=== PATIENT | female | born 1990 | race Two or more races ===

== ENCOUNTER 2017-03-19 16:49 | Emergency (ER) | payer OTHER ==
[~2017-03-19] VITALS: Ht 162.6 cm; Wt 63.5 kg
[~2017-03-19 16:49] MED LIST: DEPO150I IM; DIFL150T PO; FLUC150T PO; METR-1 PO; MMW SWISH-SWAL
[2017-03-19 16:53] VITALS: BP 152/87; PULSE 87; RESP 18; TEMP 98.3; O2SAT 100
[2017-03-19] MEDS ORDERED: PREN1TAB63 PO (17:47)
[2017-03-19 17:49] VITALS: BP 107/66; PULSE 83; RESP 18; O2SAT 100
--- NOTE | 2017-03-19 18:45 | PD ---
HPI Chief Complaint: Forensic Analyst Problem/Complaint Time Seen by Provider: 17:57 Travel History International Travel<30 days: No Contact w/Intl Traveler<30days: No Traveled to known affect area: No History of Present Illness HPI Patient's 26. She is a 2 para 1 last menstruation was 5-1/2 weeks ago. She had a positive home test. She reports vaginal spotting since this afternoon requiring about one pad per every hour and a half. She reports a dark colored vaginal bleeding. She has no back pain or abdominal pain. She denies nausea vomiting and fever. Onset sudden. No abnormal vaginal discharge. She reports a history of trichomoniasis several months prior with nonsense including a pelvic study performed a month ago at which time vaginal candidiasis was diagnosed. Pt currently is compliant with vitamins. PFSH Past Medical History Medical History: Denies Significant Hx Cardiovascular Problems: No Diminished Hearing: No Neurologic: No Respiratory: No ?: LMP: 02/07/17 : 1 Para: 0 Past Surgical History Other Surgery: No Social History Alcohol Use: No Tobacco Use: No Substance Use: No Allergies-Medications (Allergen,Severity, Reaction): Coded Allergies: No Known Allergies (Verified , 03/19/17) Reported Meds & Prescriptions Reported Meds & Active Scripts Active Reported Vitamins 0.8 mg ( Multivit-Min W/Fe-FA) 1 Tab Tab 1 Tab PO Review of Systems Except as stated in HPI: all other systems reviewed are Neg Physical Exam Narrative GENERAL: 26 yo F, WNWD, NAD SKIN: Warm and dry. HEAD: Atraumatic. Normocephalic. EYES: Pupils equal and round. No scleral icterus. No injection or drainage. ENT: No nasal bleeding or discharge. Mucous membranes pink and moist. NECK: Trachea midline. No JVD. CARDIOVASCULAR: Regular rate and rhythm. RESPIRATORY: No accessory muscle use. Clear to auscultation. Breath sounds equal bilaterally. GASTROINTESTINAL: Abdomen soft, non-tender, nondistended. Hepatic and splenic margins not palpable. MUSCULOSKELETAL: Extremities without clubbing, cyanosis, or edema. No obvious deformities. NEUROLOGICAL: Awake and alert. No obvious cranial nerve deficits. Motor grossly within normal limits. Five out of 5 muscle strength in the arms and legs. Normal speech. PSYCHIATRIC: Appropriate mood and affect; insight and judgment normal. Data Data Last Documented VS Vital Signs Date Time Temp Pulse Resp B/P Pulse Ox O2 Delivery O2 Flow Rate FiO2 03/19/17 17:51 83 18 03/19/17 17:49 107/66 100 Room Air 03/19/17 16:53 98.3 VS reviewed Orders Beta Hcg (Quant/Titer) (03/19/17 18:10) Wet Prep Profile (03/19/17 18:10) Ed Urine Pregnancytest Poc (03/19/17 18:10) Complete Rh (03/19/17 18:10) Us Pelvis (Ques Pr/Ect)W Trans (03/19/17 ) Urinalysis - C+S If Indicated (03/19/17 21:13) Labs Laboratory Tests Test 03/19/17 03/19/17 03/19/17 18:10 18:25 21:13 Blood Type AB POSITIVE Rho(D) Type POSITIVE Human Chorionic Gonadotropin, 7534 MIU/ML Quant Urine Color YELLOW Urine Turbidity CLEAR Urine pH 6.5 Urine Specific [place] 1.026 Urine Protein TRACE mg/dL Urine Glucose (UA) NEG mg/dL Urine Ketones NEG mg/dL Urine Occult Blood MOD Urine Nitrite NEG Urine Bilirubin NEG Urine Urobilinogen LESS THAN 2.0 MG/DL Urine Leukocyte Esterase TRACE Urine RBC 1 /hpf Urine WBC 1 /hpf Urine Squamous Epithelial 2 /hpf Cells Urine Bacteria RARE /hpf Urine Mucus FEW /lpf Microscopic Urinalysis Comment CULT NOT INDICATED MDM Medical Decision Making Medical Screen Exam Complete: Yes Emergency Medical Condition: Yes Medical Record Reviewed: Yes Differential Diagnosis IUP, UTI, ectopic , ov torsion, appendicitis, TOA, cervicitis, BV, Trichomoniasis, ov cyst, hernia, mittelschmerz, pain from menstruation Narrative Course Urinalysis: Asymptomatic bacteriuria Beta hCG 7534 Last 24 hours Impressions Pelvis Ultrasound 03/19/17 0000 Signed Impressions: Service Date/Time: Sunday, March 19, 2017 19:35 - CONCLUSION: 1. Positive intrauterine with gestational sac measurements too early for dating. Questionable yolk sac. No pole. 2. Small subchorionic hemorrhage lower uterine segment. 3. Corpus luteum cyst left ovary. Naeem Keita MD The patient is resting comfortably and feels better, is alert and in no distress. The patients results and examination findings were discussed. The repeat examination is unremarkable and benign. The history, exam, diagnostic testing, and current condition do not suggest any significant pathology to warrant further testing, continued ED treatment, admission, or surgical evaluation at this point. The vital signs have been stable. The patient does not have uncontrollable pain, intractable vomiting, or other significant symptoms. The patient's condition is stable and appropriate for discharge. The patient will pursue further outpatient evaluation with a primary care physician or other designated or consulting physician as indicated in the discharge instructions. The patient expressed understanding and was agreeable with this plan. Diagnosis Primary Impression: Threatened Additional Impression: Asymptomatic bacteriuria Referrals: Endy Holland MD R2 2 days Additional Instructions: You have a choice when it comes to health care, and we are glad that you chose [facility]. Hopefully, we have met your expectations on today's visit. You are welcome to return to [facility] at any time, as we are committed to meeting the health care needs of our community. FOLLOW UP WITH DR HOLLAND IN 48 HOURS FOR A REPEAT BETA TEST. Med/Other Pt SpecificInfo: Prescription(s) given Disposition: DISCHARGE HOME Condition: Stable Sid Gomez MD Mar 19, 2017 18:45
[2017-03-19 19:40] LABS: BETA HCG QUANT 7534 MIU/ML (0-5)
--- NOTE | 2017-03-19 21:13 | RADRPT ---
EXAM DATE/TIME: 03/19/2017 19:35 [facility] COMPARISON: No previous studies available for comparison. INDICATIONS : Pelvic bleeding. LAB(S): Beta-hC,534 MEDICAL HISTORY : . SURGICAL HISTORY : section. Fixator to pelvis. ENCOUNTER: Initial ACUITY: 1 day PAIN SCORE: 0/10 LOCATION: Bilateral pelvis MEASUREMENTS: UTERUS: 8.7 x 5.2 x 4.5 cm ENDOMETRIAL STRIPE: 11 mm RIGHT OVARY: 2.0 x 2.0 x 2.5 cm LEFT OVARY: 2.1 x 2.0 x 3.8 cm FREE FLUID: Yes left adnexa FINDINGS: Intrauterine with gestational sac noted with measurements to early for dating. Questionable yolk sac. No pole identified. Subchorionic hemorrhage lower uterine segment measuring about 2. 3 x 1 x 0.8 cm. Complex left ovarian cyst measuring 2.1 cm probably a corpus luteum cyst. Trace free fluid. Right ova ry unremarkable. CONCLUSION: 1. Positive intrauterine with gestational sac measurements too early for dating. Questionab le yolk sac. No pole. 2. Small subchorionic hemorrhage lower uterine segment. 3. Corpus luteum cyst left ovary. Naeem Keita MD on March 19, 2017 at 21:07 Board Certified Radiologist. This report was verified electronically.
[2017-03-19 21:41] LABS: BACTERIA, URINE RARE /hpf; BLOOD, URINE MOD (NEG); COMMENT (UR) CULT NOT INDICATED; CULTURE IF INDICATED CULT NOT INDICATED; GLUCOSE,URINE NEG (NEG); KETONE, URINE NEG (NEG); MUCUS URINE FEW /lpf (OCC); NITRITE,URINE NEG (NEG); PH, URINE 6.5 (5.0-8.5); SQUAMOUS EPITHELIAL CELL URINE 2 /hpf (0-5); URINE COLOR YELLOW (YELLW/STRAW)
== END 2017-03-19 22:52 | disposition home or self-care (01) ==
LOC: NEPD 16:49
DX: O20.0 Threatened abortion (principal); R82.71 Bacteriuria; Z3A.00 Weeks of gestation of pregnancy not specified
CPT/HCPCS: 76700; 76817; 81001; 84702; 84703

== ENCOUNTER → 2017-06-28 | Outpatient (CLI) | payer OTHER, MEDICAID ==
[~2017-06-28] MED LIST changes: -DEPO150I IM; -DIFL150T PO; -FLUC150T PO; +INFL1INJ56 IM; -METR-1 PO; -MMW SWISH-SWAL; +PREN1TAB63 PO
== END ==
LOC: HPND 08:52
PROVIDERS: ATTEND Family Medicine
DX: O26.842 Uterine size-date discrepancy, second trimester (principal); O36.8920 Maternal care for other specified fetal problems, second trimester, not applicable or unspecified; Z3A.00 Weeks of gestation of pregnancy not specified
CPT/HCPCS: 76805

== ENCOUNTER → 2017-10-31 | Emergency (ER) | payer MEDICAID ==
[~2017-10-31] MED LIST changes: +IBUP1TAB7 PO; -INFL1INJ56 IM; +OXYC1TAB63 PO; +TUCKSPAD TOPICAL
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
== END | disposition home or self-care (01) ==
LOC: HOBED 10:50
DX: O36.8130 Decreased fetal movements, third trimester, not applicable or unspecified (principal); O26.893 Other specified pregnancy related conditions, third trimester; R42 Dizziness and giddiness; Z3A.38 38 weeks gestation of pregnancy
CPT/HCPCS: 59025; 82948

== ENCOUNTER 2017-11-11 04:46 | Inpatient (IN) | payer MEDICAID ==
[2017-11-11] VITALS (115 sets, daily range): BP systolic 94–157; BP diastolic 61–97; PULSE 52–215; RESP 17–20; TEMP 97.9–99.9; O2SAT 98
[~2017-11-11] VITALS: Ht 162.6 cm; Wt 83.0 kg
[~2017-11-11 04:46] MED LIST changes: -IBUP1TAB7 PO; -OXYC1TAB63 PO; -TUCKSPAD TOPICAL
[2017-11-11] MEDS ORDERED: LACTATED RINGER'S 1000 ML INJ 1,000 ML IV PRN (05:06)
[2017-11-11] MEDS ORDERED: OXYTOCIN 30 UNITS-500ML PREMIX 500 ML IV ONE (05:15)
[2017-11-11] MEDS ORDERED: LIDOCAINE HCL 1% 50 ML VIAL INFIL PRN (05:15)
[2017-11-11] MEDS ORDERED: CITRIC ACID-SODIUM CITRATE LIQ 30 ML UDC PO SCH (05:15)
[2017-11-11] MEDS ORDERED: PENICILLIN G POTASSIUM INJ 5,000,000 UNITS in SODIUM CHLORIDE 0.9% INJ 100 ML IV ONE (05:15)
[2017-11-11] MEDS ORDERED: LIDOCAINE HCL 1% 50 ML VIAL I-DERMAL PRN (05:15)
[2017-11-11] MEDS ORDERED: MINERAL OIL 10 ML VIAL TOPICAL PRN (05:15)
[2017-11-11] MEDS ORDERED: SODIUM CHLORID 0.9% 500 ML INJ 500 ML IV PRN (05:15)
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
[2017-11-11 05:17] LABS: AUTOMATED NEUTROPHIL # 7.1 TH/MM3 (1.8-7.7); BASOPHIL # 0.1 TH/MM3 (0-0.2); BASOPHIL % 0.5 % (0.0-2.0); EOSINOPHIL # 0.1 TH/MM3 (0-0.4); EOSINOPHIL % 0.7 % (0.0-4.0); HEMATOCRIT 33.9 % (35.0-46.0); HEMOGLOBIN 11.7 GM/DL (11.6-15.3); LYMPH % 28.1 % (9.0-44.0); LYMPHOCYTE # 3.3 TH/MM3 (1.0-4.8); MEAN CELL VOLUME 90.8 FL (80.0-100.0); MEAN CORPUSCULAR HEMOGLOBIN 31.4 PG (27.0-34.0); MEAN CORPUSCULAR HGB CONC 34.5 % (32.0-36.0); MEAN PLATELET VOLUME 8.1 FL (7.0-11.0); MONOCYTE # 1.2 TH/MM3 (0-0.9); NEUT % 60.7 % (16.0-70.0); PLATELET COUNT 319 TH/MM3 (150-450); RED BLOOD COUNT 3.74 MIL/MM3 (4.00-5.30); RED CELL DISTRIBUTION WIDTH 13.2 % (11.6-17.2); WHITE BLOOD COUNT 11.8 TH/MM3 (4.0-11.0)
[2017-11-11] MEDS: LACTATED RINGER'S 1000 ML INJ 1,000 ML IV SCH ×3 (05:20→21:06)
[2017-11-11 05:22] LABS: BACTERIA, URINE RARE /hpf; BILIRUBIN, URINE NEG (NEG); BLOOD, URINE NEG (NEG); GLUCOSE,URINE NEG (NEG); HYALINE CAST, URINE 1 /lpf (RARE); KETONE, URINE NEG (NEG); MUCUS URINE FEW /lpf (OCC); NITRITE,URINE NEG (NEG); PH, URINE 6.5 (5.0-8.5); SQUAMOUS EPITHELIAL CELL URINE 1 /hpf (0-5); URINE COLOR YELLOW (YELLW/STRAW); URINE LEUKOCYTE ESTERASE TRACE (NEG)
[2017-11-11] MEDS ORDERED: fentaNYL 2MCG-BUPIV 0.125% INJ 100 ML ONE ×2 (05:26→10:40)
[2017-11-11] MEDS ORDERED: SODIUM CHLOR 0.9% 1000 ML INJ 1,000 ML IV PRN (05:26)
--- NOTE | 2017-11-11 05:42 | PD.LABORPN ---
Subjective Subjective Patient seen and examined this morning. Currently laboring at this time. Anesthesiology is present to administer epidural. Patient is reporting frequent contractions and pelvic pain/pressure. Denies any gush of fluid or vaginal bleeding. (Endy Campbell MD, R3) Objective Vital Signs Vital Signs Date Time Temp Pulse Resp B/P (MAP) Pulse Ox O2 Delivery O2 Flow Rate FiO2 11/11/17 05:10 95 11/11/17 05:09 99.0 20 11/11/17 05:05 110 11/11/17 05:01 108 150/86 (107) 11/11/17 05:00 109 Objective Pelvic Exam: Cervix: Soft Dilatation: 8 Effacement: 100 Station: -2 Presentation: Vertex Membranes: Intact Uterine Contractions: Every 2 minutes FHT's: Category: 1 Baseline: 150 Reactive: Up to 160 Variability: Moderate Decels: None Weeks Gestation: 39 Pt started active labor?: Yes Medical induction of labor?: No Artificial rupture of membrane: No (Endy Campbell MD, R3) Assessment/Plan Problem List: (1) ICD Codes: Z34.90 - Encounter for supervision of normal , unspecified , unspecified trimester Qualifiers: Qualified Codes: Z3A.39 - 39 weeks gestation of Assessment and Plan 26-year-old at 39/3 weeks presenting in active labor #1 IUP Category 1 tracing, reassuring #2 labor, active phase Contractions and cervical change Bulging bag, await AROM until PCN given x2, if possible Admit to L&D, routine labor care Plan for epidural anesthesia, currently being performed #3 GBS positive Ppx with PCN wdw Dr. Cook (Endy Campbell MD, R3) Assessment and Plan Patient seen and evaluated with resident under direct supervision, agree with assessment and plan. (Tommy Cook MD) Endy Campbell MD, R3 Nov 11, 2017 05:42 Tommy Cook MD Nov 11, 2017 07:29
[2017-11-11] MEDS ORDERED: LIDOCAINE HCL 1% 20 ML VIAL ONE (09:36)
[2017-11-11] MEDS: PENICILLIN G POTASSIUM INJ 2,500,000 UNITS in SODIUM CHLORIDE 0.9% INJ 100 ML IV SCH ×3 (09:38→21:00)
--- NOTE | 2017-11-11 10:36 | PD.LABORPN ---
Subjective Subjective Pt doing well, lying in bed. Pain controlled. No new symptoms. Objective Vital Signs Vital Signs Date Time Temp Pulse Resp B/P (MAP) Pulse Ox O2 Delivery O2 Flow Rate FiO2 11/11/17 09:40 113 11/11/17 09:35 106 11/11/17 09:30 97 94/61 (72) 11/11/17 09:30 20 11/11/17 09:30 111 11/11/17 09:25 111 11/11/17 09:20 104 11/11/17 09:15 104 134/85 (101) 11/11/17 09:15 97 11/11/17 09:15 19 11/11/17 09:10 111 11/11/17 09:05 113 11/11/17 09:00 98 11/11/17 09:00 99 135/85 (102) 11/11/17 08:45 18 11/11/17 08:40 101 11/11/17 08:35 100 11/11/17 08:30 90 126/84 (98) 11/11/17 08:30 99 11/11/17 08:13 98.0 11/11/17 08:12 17 11/11/17 08:10 98 11/11/17 08:05 93 11/11/17 08:00 94 11/11/17 08:00 97 133/95 (108) 11/11/17 07:50 90 11/11/17 07:45 98 11/11/17 07:45 98 131/83 (99) 11/11/17 07:30 17 11/11/17 07:25 99 11/11/17 07:20 90 11/11/17 07:15 100 11/11/17 07:15 91 122/79 (93) 11/11/17 07:15 18 11/11/17 07:10 89 11/11/17 07:05 92 11/11/17 07:00 97 126/81 (96) 11/11/17 07:00 98 11/11/17 06:50 103 11/11/17 06:45 135/81 (99) 11/11/17 06:45 99 11/11/17 06:45 100 11/11/17 06:40 96 11/11/17 06:35 103 11/11/17 06:30 101 131/83 (99) 11/11/17 06:30 100 11/11/17 06:30 97.9 11/11/17 06:30 20 11/11/17 06:30 103 11/11/17 06:25 104 11/11/17 06:25 100 11/11/17 06:20 121 11/11/17 06:20 118 11/11/17 06:19 113 133/86 (102) 11/11/17 06:15 108 117/79 (92) 11/11/17 06:15 104 11/11/17 06:15 103 11/11/17 06:11 126/80 (95) 11/11/17 06:11 107 11/11/17 06:10 109 11/11/17 06:10 110 11/11/17 06:05 147 11/11/17 06:05 143/67 (92) 11/11/17 06:05 109 11/11/17 06:05 103 11/11/17 06:00 95 11/11/17 06:00 131/84 (100) 11/11/17 06:00 97 11/11/17 06:00 95 11/11/17 05:55 97 11/11/17 05:55 103 132/83 (99) 11/11/17 05:55 98 11/11/17 05:54 20 11/11/17 05:50 100 11/11/17 05:50 101 11/11/17 05:50 102 130/82 (98) 11/11/17 05:48 95 120/70 (87) 11/11/17 05:46 108 104/68 (80) 11/11/17 05:45 105 11/11/17 05:45 103 11/11/17 05:42 101 119/78 (92) 11/11/17 05:40 100 11/11/17 05:40 100 11/11/17 05:39 103 125/86 (99) 11/11/17 05:36 106 142/80 (100) 11/11/17 05:35 98.4 11/11/17 05:35 99 11/11/17 05:35 100 11/11/17 05:34 135/87 (103) 11/11/17 05:34 94 11/11/17 05:32 100 11/11/17 05:32 120/88 (99) 11/11/17 05:30 104 11/11/17 05:26 20 11/11/17 05:25 114 11/11/17 05:20 95 11/11/17 05:10 95 11/11/17 05:09 99.0 20 11/11/17 05:05 110 11/11/17 05:01 108 150/86 (107) 11/11/17 05:00 109 Objective Pelvic Exam: Cervix: [-] Dilatation: 9-10 Effacement: 100 Station: -2 Presentation: vertex Membranes: AROM at 1030 Uterine Contractions: q2-3 minutes FHT's: Category: 1 Baseline: 140 Reactive: yes Variability: moderate Decels: none Weeks Gestation: 39 Pt started active labor?: Yes Medical induction of labor?: No Artificial rupture of membrane: Yes Artificial ROM date: Nov 11, 2017 Artifical ROM time: 10:34 Assessment/Plan Problem List: (1) ICD Codes: Z34.90 - Encounter for supervision of normal , unspecified , unspecified trimester Qualifiers: Qualified Codes: Z3A.39 - 39 weeks gestation of Assessment and Plan 26-year-old at 39/3 weeks in active labor #1 IUP Category 1 tracing, reassuring #2 labor, active phase Contractions and cervical change AROM performed Admit to L&D, routine labor care Epidural #3 GBS positive Ppx with Cristofer Briseno MD Nov 11, 2017 10:36
[2017-11-11] MEDS ORDERED: DO NOT ADMINISTER ANTICOAGULANTS PRN (11:15)
[2017-11-11] MEDS ORDERED: NO SYSTEM NARCOTICS PRN (11:15)
[2017-11-11] MEDS ORDERED: fentaNYL 2MCG-BUPIV 0.125% 100 ML EPIDURAL SCH (11:15)
[2017-11-11] MEDS ORDERED: ePHEDrine/NS 25 MG/5 ML SYRINGE IV PUSH PRN (11:15)
[2017-11-11] MEDS ORDERED: BUPIVACAINE HCL PF 0.25% 10 ML VIAL ONE (12:30)
[2017-11-11] MEDS ORDERED: LIDOCAINE 2%/EPINEPHrine PF 1:200,000 20ML SDV ONE (12:30)
--- NOTE | 2017-11-11 15:09 | PD.LABORPN ---
Subjective Subjective Patient seen and examined. She has been having decreased urine output. Labs have been ordered. She reports that she feels that she needs to push and a trial of pushing has begun. She is only feeling pelvic pressure denies any severe pain. Objective Vital Signs Vital Signs Date Time Temp Pulse Resp B/P (MAP) Pulse Ox O2 Delivery O2 Flow Rate FiO2 11/11/17 12:15 134 11/11/17 12:15 20 11/11/17 12:15 146 144/89 (107) 11/11/17 12:10 115 11/11/17 12:05 118 11/11/17 12:00 19 11/11/17 12:00 108 11/11/17 12:00 116 138/97 (111) 11/11/17 11:55 116 11/11/17 11:50 119 11/11/17 11:45 110 11/11/17 11:45 107 130/90 (103) 11/11/17 11:24 18 11/11/17 11:20 108 11/11/17 11:15 114 11/11/17 11:15 107 128/88 (101) 11/11/17 11:10 99 11/11/17 11:05 113 11/11/17 11:00 94 11/11/17 11:00 104 141/91 (108) 11/11/17 11:00 98.2 11/11/17 10:58 18 11/11/17 10:55 102 11/11/17 10:50 101 11/11/17 10:46 101 157/73 (101) 11/11/17 10:45 106 11/11/17 10:30 18 11/11/17 10:25 104 11/11/17 10:20 105 11/11/17 10:15 98 113/74 (87) 11/11/17 10:15 98 11/11/17 09:40 113 11/11/17 09:35 106 11/11/17 09:30 97 94/61 (72) 11/11/17 09:30 20 11/11/17 09:30 111 11/11/17 09:25 111 11/11/17 09:20 104 11/11/17 09:15 104 134/85 (101) 11/11/17 09:15 97 11/11/17 09:15 19 11/11/17 09:10 111 11/11/17 09:05 113 11/11/17 09:00 98 11/11/17 09:00 99 135/85 (102) 11/11/17 08:45 18 11/11/17 08:40 101 11/11/17 08:35 100 11/11/17 08:30 90 126/84 (98) 11/11/17 08:30 99 11/11/17 08:13 98.0 11/11/17 08:12 17 11/11/17 08:10 98 11/11/17 08:05 93 11/11/17 08:00 94 11/11/17 08:00 97 133/95 (108) 11/11/17 07:50 90 11/11/17 07:45 98 11/11/17 07:45 98 131/83 (99) 11/11/17 07:30 17 11/11/17 07:25 99 11/11/17 07:20 90 11/11/17 07:15 100 11/11/17 07:15 91 122/79 (93) 11/11/17 07:15 18 11/11/17 07:10 89 11/11/17 07:05 92 Objective Pelvic Exam: Cervix: soft Dilatation:10 Effacement: 100 Station:-1 Presentation: vertex Membranes: AROM Uterine Contractions: every 2 min FHT's: Category: 2 Baseline: 165 Reactive: up to 180 Variability: moderate Decels: none Weeks Gestation: 39 Pt started active labor?: Yes Medical induction of labor?: No Artificial rupture of membrane: Yes Artificial ROM date: Nov 11, 2017 Artifical ROM time: 10:34 Assessment/Plan Problem List: (1) ICD Codes: Z34.90 - Encounter for supervision of normal , unspecified , unspecified trimester Qualifiers: Qualified Codes: Z3A.39 - 39 weeks gestation of Assessment and Plan 26-year-old at 39/3 weeks in active labor #1 IUP Category 2 tracing, encouraging pushing to deliver the baby #2 labor, active phase Contractions and cervical change AROM performed Admit to L&D, routine labor care Epidural #3 GBS positive Ppx with PCN wdw: Endy Lopez MD, R3 Nov 11, 2017 15:09
[2017-11-11 15:10] LABS: HEMATOCRIT 33.6 % (35.0-46.0); HEMOGLOBIN 11.5 GM/DL (11.6-15.3); MEAN CELL VOLUME 91.1 FL (80.0-100.0); MEAN CORPUSCULAR HEMOGLOBIN 31.3 PG (27.0-34.0); MEAN CORPUSCULAR HGB CONC 34.4 % (32.0-36.0); MEAN PLATELET VOLUME 8.4 FL (7.0-11.0); PLATELET COUNT 313 TH/MM3 (150-450); RED BLOOD COUNT 3.69 MIL/MM3 (4.00-5.30); RED CELL DISTRIBUTION WIDTH 13.6 % (11.6-17.2); WHITE BLOOD COUNT 15.7 TH/MM3 (4.0-11.0)
[2017-11-11 15:42] LABS: ALT (GPT) 16 U/L (10-53); AST (GOT) 26 U/L (15-37); BICARBONATE 20.1 MEQ/L (21.0-32.0); BLOOD UREA NITROGEN 14 MG/DL (7-18); CHLORIDE 106 MEQ/L (98-107); GLOMERULAR FILTRATION RATE 60 ML/MIN (>89); GLUCOSE,RANDOM 81 MG/DL (74-106); SODIUM (NA) 137 MEQ/L (136-145)
[2017-11-11 15:45] LABS: ALKALINE PHOSPHATASE 202 U/L (45-117); TOTAL BILIRUBIN ADULT 0.3 MG/DL (0.2-1.0); TOTAL PROTEIN 7.3 GM/DL (6.4-8.2)
[2017-11-11] MEDS ORDERED: DIPHTH/TETANUS/ACEL PERTUSSIS (BOOSTER) 0.5 ML VIAL/PFS IM ONE (16:00)
[2017-11-11] MEDS ORDERED: MEASLES, MUMPS, RUBELLA VACCINE 0.5 ML VIAL SQ ONE (16:00)
--- NOTE | 2017-11-11 16:30 | PD.OB.DELI ---
Weeks gestation: 39 Pt started active labor?: Yes Medical induction of labor?: No Artificial rupture of membrane: Yes Artificial ROM date: Nov 11, 2017 Artifical ROM time: 10:34 Anesthesia: Epidural Episiotomy: None Vaginal Delivery: Normal Presentation: Occiput posterior Nuchal Cord: None Delayed cord clamping (45 sec): No : Female Delivery date: Nov 11, 2017 Delivery time: 16:10 One Minute : 4 Five Minute : 7 Placenta: Spontaneous delivery, Intact, 3 vessel cord, Cord pH (7.14) Laceration: Vaginal laceration (2), Perineal laceration (1), 1 deg Repair: Chromic running (figure 8 repair) Additional Information This was a 26 year old who delivered the baby spontaneous via a . She had 3 1st degree tears 2 vaginal and 1 perineal that was repaired with figure 8 sutures. The had decels during the contractions that would improve immediately upon completion of contraction. Endy Campbell MD, R3 Nov 11, 2017 16:30
--- NOTE | 2017-11-11 16:30 | HHI.PR ---
Subjective Remarks Present for pushing and delivery, The infant was op and delivered straight op. FHT while pushing was deceleration but always recovered above 120, continuous monitoring. ABG 7.14 and had poor tone and was taken to NICU for observation. Objective Vital Signs Date Time Temp Pulse Resp B/P (MAP) Pulse Ox O2 Delivery O2 Flow Rate FiO2 11/11/17 12:15 134 11/11/17 12:15 20 11/11/17 12:15 146 144/89 (107) 11/11/17 12:10 115 11/11/17 12:05 118 11/11/17 12:00 19 11/11/17 12:00 108 11/11/17 12:00 116 138/97 (111) 11/11/17 11:55 116 11/11/17 11:50 119 11/11/17 11:45 110 11/11/17 11:45 107 130/90 (103) 11/11/17 11:24 18 11/11/17 11:20 108 11/11/17 11:15 114 11/11/17 11:15 107 128/88 (101) 11/11/17 11:10 99 11/11/17 11:05 113 11/11/17 11:00 94 11/11/17 11:00 104 141/91 (108) 11/11/17 11:00 98.2 11/11/17 10:58 18 11/11/17 10:55 102 11/11/17 10:50 101 11/11/17 10:46 101 157/73 (101) 11/11/17 10:45 106 11/11/17 10:30 18 11/11/17 10:25 104 11/11/17 10:20 105 11/11/17 10:15 98 113/74 (87) 11/11/17 10:15 98 11/11/17 09:40 113 11/11/17 09:35 106 11/11/17 09:30 97 94/61 (72) 11/11/17 09:30 20 11/11/17 09:30 111 11/11/17 09:25 111 11/11/17 09:20 104 11/11/17 09:15 104 134/85 (101) 11/11/17 09:15 97 11/11/17 09:15 19 11/11/17 09:10 111 11/11/17 09:05 113 11/11/17 09:00 98 11/11/17 09:00 99 135/85 (102) 11/11/17 08:45 18 11/11/17 08:40 101 11/11/17 08:35 100 11/11/17 08:30 90 126/84 (98) 11/11/17 08:30 99 11/11/17 08:13 98.0 11/11/17 08:12 17 11/11/17 08:10 98 11/11/17 08:05 93 11/11/17 08:00 94 11/11/17 08:00 97 133/95 (108) 11/11/17 07:50 90 11/11/17 07:45 98 11/11/17 07:45 98 131/83 (99) 11/11/17 07:30 17 11/11/17 07:25 99 11/11/17 07:20 90 11/11/17 07:15 100 11/11/17 07:15 91 122/79 (93) 11/11/17 07:15 18 11/11/17 07:10 89 11/11/17 07:05 92 11/11/17 07:00 97 126/81 (96) 11/11/17 07:00 98 11/11/17 06:50 103 11/11/17 06:45 135/81 (99) 11/11/17 06:45 99 11/11/17 06:45 100 11/11/17 06:40 96 11/11/17 06:35 103 11/11/17 06:30 101 131/83 (99) 11/11/17 06:30 100 11/11/17 06:30 97.9 11/11/17 06:30 20 11/11/17 06:30 103 11/11/17 06:25 104 11/11/17 06:25 100 18 06:20 121 11/11/17 06:20 118 18 06:19 113 133/86 (102) 11/11/17 06:15 108 117/79 (92) 11/11/17 06:15 104 11/11/17 06:15 103 11/11/17 06:11 126/80 (95) 11/11/17 06:11 107 11/11/17 06:10 109 11/11/17 06:10 110 11/11/17 06:05 147 11/11/17 06:05 143/67 (92) 11/11/17 06:05 109 11/11/17 06:05 103 11/11/17 06:00 95 11/11/17 06:00 131/84 (100) 11/11/17 06:00 97 11/11/17 06:00 95 11/11/17 05:55 97 11/11/17 05:55 103 132/83 (99) 11/11/17 05:55 98 11/11/17 05:54 20 11/11/17 05:50 100 11/11/17 05:50 101 11/11/17 05:50 102 130/82 (98) 11/11/17 05:48 95 120/70 (87) 11/11/17 05:46 108 104/68 (80) 11/11/17 05:45 105 11/11/17 05:45 103 11/11/17 05:42 101 119/78 (92) 11/11/17 05:40 100 11/11/17 05:40 100 11/11/17 05:39 103 125/86 (99) 11/11/17 05:36 106 142/80 (100) 11/11/17 05:35 98.4 11/11/17 05:35 99 11/11/17 05:35 100 11/11/17 05:34 135/87 (103) 11/11/17 05:34 94 11/11/17 05:32 100 11/11/17 05:32 120/88 (99) 11/11/17 05:30 104 11/11/17 05:26 20 11/11/17 05:25 114 11/11/17 05:20 95 11/11/17 05:10 95 11/11/17 05:09 99.0 20 11/11/17 05:05 110 11/11/17 05:01 108 150/86 (107) 11/11/17 05:00 109 I/O 11/10/17 11/10/17 11/10/17 11/11/17 11/11/17 11/11/17 07:00 15:00 23:00 07:00 15:00 23:00 Intake Total 1100 ml Balance 1100 ml Intake IV Total 1100 ml Result Diagram: 11/11/17 1430 11/11/17 1430 Constantino Ovalles MD Nov 11, 2017 16:30
[2017-11-11] MEDS ORDERED: ALUMINUM/MAGNESIUM/SIMETH 30 ML CUP PO PRN (16:45)
[2017-11-11] MEDS ORDERED: ZOLPIDEM TARTRATE 5 MG TAB PO PRN (16:45)
[2017-11-11] MEDS ORDERED: SODIUM CHLORIDE 0.9% FLUSH 10 ML FLUSH IV FLUSH PRN (16:45)
[2017-11-11] MEDS ORDERED: WITCH HAZEL 50%/GLYCERIN 12.5% 40 PAD JAR TOPICAL PRN (16:45)
[2017-11-11] MEDS ORDERED: oxyCODONE/ACETAMINOPHEN 5 MG/325 MG TAB PO PRN (16:45)
[2017-11-11] MEDS ORDERED: DOCUSATE SODIUM 50 MG/SENNA 8.6 MG TAB PO PRN (16:45)
[2017-11-11] MEDS ORDERED: ACETAMINOPHEN 325 MG TAB PO PRN (16:45)
[2017-11-11] MEDS ORDERED: OXYTOCIN 30 UNITS-500ML PREMIX 500 ML IV SCH (16:45)
[2017-11-11] MEDS ORDERED: ONDANSETRON ODT 4 MG TAB PO PRN (16:45)
[2017-11-11] MEDS ORDERED: BENZOCAINE 20% TOPICAL SPRAY 60 ML CAN TOPICAL PRN (16:45)
[2017-11-11] MEDS: IBUPROFEN 800 MG TAB PO PRN (19:11)
[2017-11-11] MEDS: oxyCODONE/ACETAMINOPHEN 5 MG/325 MG TAB PO PRN (19:12)
[2017-11-11] MEDS ORDERED: SODIUM CHLORIDE 0.9% FLUSH 10 ML FLUSH IV FLUSH SCH (21:00)
[2017-11-12] MEDS: PENICILLIN G POTASSIUM INJ 2,500,000 UNITS in SODIUM CHLORIDE 0.9% INJ 100 ML IV SCH ×2 (01:00→03:22)
[2017-11-12] MEDS: IBUPROFEN 800 MG TAB PO PRN ×2 (04:00→13:55)
[2017-11-12] MEDS: oxyCODONE/ACETAMINOPHEN 5 MG/325 MG TAB PO PRN (04:01)
[2017-11-12] MEDS: LACTATED RINGER'S 1000 ML INJ 1,000 ML IV SCH (05:06)
[2017-11-12 08:00] VITALS: BP 123/79; PULSE 87; RESP 18; TEMP 98; O2SAT 98
--- NOTE | 2017-11-12 08:20 | HHI.OB ---
Subjective Post Day: 1 Remarks day # 1. AFVSS overnight. Pain controlled. Decreased lochia. Denies dysuria. No breast tenderness. She is feeding the baby via breast/ formula. Appetite good. No nausea or vomiting. Positive flatus. Negative bowel movement. Ambulating well. Denies calf pain, shortness of breath, or cough. Otherwise, she is doing well this morning and has no other complaints. (Endy Campbell MD, R3) Objective Vitals/I&O Vital Signs Date Time Temp Pulse Resp B/P (MAP) Pulse Ox O2 Delivery O2 Flow Rate FiO2 11/11/17 21:50 98.3 100 18 130/75 (93) 98 11/11/17 17:59 17 11/11/17 17:45 91 127/82 (97) 11/11/17 17:30 92 133/81 (98) 11/11/17 17:15 116 151/70 (97) 11/11/17 17:05 17 11/11/17 17:00 97 132/86 (101) 11/11/17 16:50 99.9 11/11/17 16:36 20 11/11/17 16:35 116 129/76 (93) 11/11/17 15:40 52 11/11/17 15:35 86 11/11/17 15:30 158 11/11/17 15:15 18 11/11/17 15:10 111 11/11/17 15:05 130 11/11/17 15:00 123 131/85 (100) 11/11/17 15:00 123 11/11/17 13:57 17 11/11/17 13:55 112 11/11/17 13:50 120 11/11/17 13:46 215 124/67 (86) 11/11/17 13:45 141 11/11/17 13:45 145 11/11/17 13:45 18 11/11/17 13:40 106 11/11/17 13:40 108 11/11/17 13:35 117 11/11/17 13:35 118 11/11/17 13:30 103 11/11/17 13:30 108 118/83 (95) 11/11/17 13:30 109 11/11/17 12:45 109 11/11/17 12:45 108 11/11/17 12:45 114 123/75 (91) 11/11/17 12:40 133 11/11/17 12:40 124 11/11/17 12:35 119 11/11/17 12:30 119 129/92 (104) 11/11/17 12:30 115 18 12:15 134 11/11/17 12:15 20 11/11/17 12:15 146 144/89 (107) 11/11/17 12:10 115 11/11/17 12:05 118 11/11/17 12:00 19 11/11/17 12:00 108 11/11/17 12:00 116 138/97 (111) 11/11/17 11:55 116 11/11/17 11:50 119 11/11/17 11:45 110 11/11/17 11:45 107 130/90 (103) 11/11/17 11:40 102 11/11/17 11:35 105 11/11/17 11:30 104 11/11/17 11:30 99 122/83 (96) 11/11/17 11:24 18 11/11/17 11:20 108 11/11/17 11:15 114 11/11/17 11:15 107 128/88 (101) 11/11/17 11:10 99 11/11/17 11:05 113 11/11/17 11:00 94 11/11/17 11:00 104 141/91 (108) 11/11/17 11:00 98.2 11/11/17 10:58 18 11/11/17 10:55 102 11/11/17 10:50 101 11/11/17 10:46 101 157/73 (101) 11/11/17 10:45 106 11/11/17 10:30 18 11/11/17 10:25 104 18 10:20 105 11/11/17 10:15 98 113/74 (87) 11/11/17 10:15 98 11/11/17 09:40 113 18 09:35 106 11/11/17 09:30 97 94/61 (72) 11/11/17 09:30 20 11/11/17 09:30 111 11/11/17 09:25 111 11/11/17 09:20 104 11/11/17 09:15 104 134/85 (101) 11/11/17 09:15 97 11/11/17 09:15 19 11/11/17 09:10 111 11/11/17 09:05 113 11/11/17 09:00 98 11/11/17 09:00 99 135/85 (102) 11/11/17 08:45 18 11/11/17 08:40 101 11/11/17 08:35 100 11/11/17 08:30 90 126/84 (98) 11/11/17 08:30 99 Objective Remarks GENERAL: Well-nourished, well-developed patient. CARDIOVASCULAR: Regular rate and rhythm without murmurs, gallops, or rubs. RESPIRATORY: Breath sounds equal bilaterally. No accessory muscle use. ABDOMEN/GI: Abdomen soft, non-tender. Fundus: Firm, non-tender at umbilicus. GENITOURINARY: Light to moderate bleeding. EXTREMITIES: No cyanosis or edema, non-tender, without signs of DVT. Medications and IVs Current Medications Medications (Trade) Dose Ordered Sig/Sadaf Route Start Time Stop Time Status Last Admin Lactated Ringer's 1,000 ml @ 125 mls/hr Q8H IV 11/11/17 05:06 11/11/17 06:08 Lactated Ringer's 1,000 ml @ 3,000 mls/hr Q20M PRN IV 11/11/17 05:06 11/11/17 14:36 Sodium Chloride 500 ml @ 1,000 mls/hr ONCE PRN IV 11/11/17 05:15 11/18/17 05:14 Sodium Chloride 1,000 ml @ 100 mls/hr Q10H PRN IV 11/11/17 05:26 (Xylocaine 1% Inj (50 ml)) 0.1 ml UNSCH X1 PRN I-DERMAL 11/11/17 05:15 11/14/17 05:14 (Bicitra Liq) 30 ml CANDY ATTENDANT PO 11/11/17 05:15 11/15/17 05:14 (fentaNYL INJ) 50 mcg Q1H PRN IV PUSH 11/11/17 05:15 (fentaNYL INJ) 100 mcg Q1H PRN IV PUSH 11/11/17 05:15 Penicillin G Potassium 7699303 units/Sodium Chloride 100 ml @ 200 mls/hr Q4H IV 11/11/17 09:00 11/11/17 14:42 (Xylocaine 1% Inj (50 ml)) 10 ml UNSCH X1 PRN INFIL 11/11/17 05:15 11/13/17 05:14 11/11/17 16:10 (Muri-Lube Oil) 10 ml UNSCH PRN TOPICAL 11/11/17 05:15 11/11/17 17:54 Miscellaneous Information No systemic narcotics to be given except... UNSCH PRN .XX 11/11/17 11:15 11/12/17 11:14 Miscellaneous Information DO NOT ADMINISTER ANY ANTICOAGUL... UNSCH PRN .XX 11/11/17 11:15 11/12/17 11:14 Fentanyl/ Bupivacaine HCl 100 ml @ 0 mls/hr TITRATE EPIDURAL 11/11/17 11:15 (ePHEDrine/NS 25 MG/5 ML SYR) 10 mg UNSCH PRN IV PUSH 11/11/17 11:15 11/12/17 11:14 (NS Flush) 2 ml BID IV FLUSH 11/11/17 21:00 (NS Flush) 2 ml UNSCH PRN IV FLUSH 11/11/17 16:45 (Tylenol) 650 mg Q4H PRN PO 11/11/17 16:45 (Motrin) 800 mg Q8H PRN PO 11/11/17 16:45 11/12/17 04:00 (Percocet 5-325 Mg) 1 tab Q4H PRN PO 11/11/17 16:45 11/12/17 04:01 (Percocet 5-325 Mg) 2 tab Q4H PRN PO 11/11/17 16:45 (Americaine 20% Top Spr) 1 spray Q4H PRN TOPICAL 11/11/17 16:45 11/11/17 22:28 (Tucks Pads) 1 applic QID PRN TOPICAL 11/11/17 16:45 11/11/17 22:28 (Flor-Colace) 2 tab Q12H PRN PO 11/11/17 16:45 11/12/17 04:00 (Ambien) 5 mg HS PRN PO 11/11/17 16:45 (Mag-Al Plus Susp Liq) 15 ml Q8H PRN PO 11/11/17 16:45 (Zofran Odt) 4 mg Q6H PRN PO 11/11/17 16:45 (Endy Campbell MD, R3) Assessment/Plan Problem List: (1) care following vaginal delivery ICD Codes: Z39.2 - Encounter for routine follow-up Assessment and Plan 26 y/o female who is PPD# 1 s/p . -Continue routine care. -Percocet and Motrin PRN pain. -Encouraged OOB. Advised pelvic rest for 6 wks. -Will need a f/u appt. within 6 wks, however will see her 1 time next week first. -Re: ctrl, she is still deciding. -D/c plan for later today. wdw Dr. Aguiar Discharge Planning Plan to discharge this afternoon (Endy Campbell MD, R3) Attending Attestation Case reviewed and discussed with the Dr Campbell this am. Agree with plan of care as discussed with me and documented in the resident note. (Joaquina Aguiar MD) Endy Campbell MD, R3 Nov 12, 2017 08:20 Joaquina Aguiar MD Nov 12, 2017 12:18
--- NOTE | 2017-11-12 10:22 | HHI.OB ---
Subjective Post Day: 1 Remarks doing well but in NICU in [place] Objective Vitals/I&O Vital Signs Date Time Temp Pulse Resp B/P (MAP) Pulse Ox O2 Delivery O2 Flow Rate FiO2 11/11/17 21:50 98.3 100 18 130/75 (93) 98 11/11/17 17:59 17 11/11/17 17:45 91 127/82 (97) 11/11/17 17:30 92 133/81 (98) 11/11/17 17:15 116 151/70 (97) 11/11/17 17:05 17 11/11/17 17:00 97 132/86 (101) 11/11/17 16:50 99.9 11/11/17 16:36 20 11/11/17 16:35 116 129/76 (93) 11/11/17 15:40 52 11/11/17 15:35 86 11/11/17 15:30 158 11/11/17 15:15 18 11/11/17 15:10 111 11/11/17 15:05 130 11/11/17 15:00 123 131/85 (100) 11/11/17 15:00 123 11/11/17 13:57 17 11/11/17 13:55 112 11/11/17 13:50 120 11/11/17 13:46 215 124/67 (86) 11/11/17 13:45 141 11/11/17 13:45 145 11/11/17 13:45 18 11/11/17 13:40 106 11/11/17 13:40 108 11/11/17 13:35 117 11/11/17 13:35 118 11/11/17 13:30 103 11/11/17 13:30 108 118/83 (95) 11/11/17 13:30 109 11/11/17 12:45 109 11/11/17 12:45 108 11/11/17 12:45 114 123/75 (91) 11/11/17 12:40 133 18 12:40 124 11/11/17 12:35 119 11/11/17 12:30 119 129/92 (104) 11/11/17 12:30 115 11/11/17 12:15 134 11/11/17 12:15 20 11/11/17 12:15 146 144/89 (107) 11/11/17 12:10 115 11/11/17 12:05 118 11/11/17 12:00 19 11/11/17 12:00 108 11/11/17 12:00 116 138/97 (111) 11/11/17 11:55 116 11/11/17 11:50 119 11/11/17 11:45 110 11/11/17 11:45 107 130/90 (103) 11/11/17 11:40 102 11/11/17 11:35 105 11/11/17 11:30 104 11/11/17 11:30 99 122/83 (96) 11/11/17 11:24 18 11/11/17 11:20 108 11/11/17 11:15 114 11/11/17 11:15 107 128/88 (101) 11/11/17 11:10 99 11/11/17 11:05 113 11/11/17 11:00 94 11/11/17 11:00 104 141/91 (108) 11/11/17 11:00 98.2 11/11/17 10:58 18 11/11/17 10:55 102 11/11/17 10:50 101 11/11/17 10:46 101 157/73 (101) 11/11/17 10:45 106 11/11/17 10:30 18 11/11/17 10:25 104 11/11/17 10:20 105 Objective Remarks . Medications and IVs Current Medications Medications (Trade) Dose Ordered Sig/Sadaf Route Start Time Stop Time Status Last Admin Lactated Ringer's 1,000 ml @ 125 mls/hr Q8H IV 11/11/17 05:06 11/11/17 06:08 Lactated Ringer's 1,000 ml @ 3,000 mls/hr Q20M PRN IV 11/11/17 05:06 11/11/17 14:36 Sodium Chloride 500 ml @ 1,000 mls/hr ONCE PRN IV 11/11/17 05:15 11/18/17 05:14 Sodium Chloride 1,000 ml @ 100 mls/hr Q10H PRN IV 11/11/17 05:26 (Xylocaine 1% Inj (50 ml)) 0.1 ml UNSCH X1 PRN I-DERMAL 11/11/17 05:15 11/14/17 05:14 (Bicitra Liq) 30 ml CAREER DEVELOPMENT FACILITATOR PO 11/11/17 05:15 11/15/17 05:14 (fentaNYL INJ) 50 mcg Q1H PRN IV PUSH 11/11/17 05:15 (fentaNYL INJ) 100 mcg Q1H PRN IV PUSH 11/11/17 05:15 Penicillin G Potassium [id number] units/Sodium Chloride 100 ml @ 200 mls/hr Q4H IV 11/11/17 09:00 11/11/17 14:42 (Xylocaine 1% Inj (50 ml)) 10 ml UNSCH X1 PRN INFIL 11/11/17 05:15 11/13/17 05:14 11/11/17 16:10 (Muri-Lube Oil) 10 ml UNSCH PRN TOPICAL 11/11/17 05:15 11/11/17 17:54 Miscellaneous Information No systemic narcotics to be given except... UNSCH PRN .XX 11/11/17 11:15 11/12/17 11:14 Miscellaneous Information DO NOT ADMINISTER ANY ANTICOAGUL... UNSCH PRN .XX 11/11/17 11:15 11/12/17 11:14 Fentanyl/ Bupivacaine HCl 100 ml @ 0 mls/hr TITRATE EPIDURAL 11/11/17 11:15 (ePHEDrine/NS 25 MG/5 ML SYR) 10 mg UNSCH PRN IV PUSH 11/11/17 11:15 11/12/17 11:14 (NS Flush) 2 ml BID IV FLUSH 11/11/17 21:00 (NS Flush) 2 ml UNSCH PRN IV FLUSH 11/11/17 16:45 (Tylenol) 650 mg Q4H PRN PO 11/11/17 16:45 (Motrin) 800 mg Q8H PRN PO 11/11/17 16:45 11/12/17 04:00 (Percocet 5-325 Mg) 1 tab Q4H PRN PO 11/11/17 16:45 11/12/17 04:01 (Percocet 5-325 Mg) 2 tab Q4H PRN PO 11/11/17 16:45 (Americaine 20% Top Spr) 1 spray Q4H PRN TOPICAL 11/11/17 16:45 11/11/17 22:28 (Tucks Pads) 1 applic QID PRN TOPICAL 11/11/17 16:45 11/11/17 22:28 (Flor-Colace) 2 tab Q12H PRN PO 11/11/17 16:45 11/12/17 04:00 (Ambien) 5 mg HS PRN PO 11/11/17 16:45 (Mag-Al Plus Susp Liq) 15 ml Q8H PRN PO 11/11/17 16:45 (Zofran Odt) 4 mg Q6H PRN PO 11/11/17 16:45 Assessment/Plan Problem List: (1) care following vaginal delivery ICD Codes: Z39.2 - Encounter for routine follow-up Assessment and Plan 26 y/o female who is PPD# 1 s/p . -Continue routine care. -Percocet and Motrin PRN pain. -Encouraged OOB. Advised pelvic rest for 6 wks. -Will need a f/u appt. within 6 wks, however will see her 1 time next week first. -Re: ctrl, she is still deciding. -D/c plan for later today. wdw Dr. Aguiar Discharge Planning Plan to discharge this afternoon Attending Attestation I personally discussed the delivery after it was determined the infant was going to [place]. Last night at around 6pm. I had a conversation with patient about delivery and the transfer to [place] for . I again met with the patient and the father of baby this AM and answered all questions. They reported the infant was being cooled and seemed to be doing better. 72 hours of cooling was the plan in [place]. She was offered DC home but it would be the patients choice. Constantino Ovalles MD Nov 12, 2017 10:22
[2017-11-12] MEDS ORDERED: IBUP1TAB7 PO (16:25)
[2017-11-12] MEDS ORDERED: OXYC1TAB63 PO (16:25)
[2017-11-12] MEDS ORDERED: TUCKSPAD TOPICAL (16:25)
--- NOTE | 2017-11-12 16:25 | HHI.DCPOC ---
Discharge Care Plan Diagnosis: (1) care following vaginal delivery Report Symptoms to Your Doctor -Temperature above 100.5 degrees -Redness, of incision or excessive or foul smelling drainage -Unusual pain or calf pain -Increased vaginal bleeding -Painful or difficulty urinating -Feelings of extreme sadness or anxiety after 2 weeks Goals to Promote Your Health * To prevent worsening of your condition and complications * To maintain your health at the optimal level Directions to Meet Your Goals Take your medications as prescribed Follow your dietary instruction Follow activity as directed Ensure plenty of rest for recovery Drink fluids for hydration Keep your appointments as scheduled Take your immunizations and boosters as scheduled If your symptoms worsen call your PCP, if no PCP go to Urgent Care Center or Emergency Room Smoking is Dangerous to Your Health. Avoid second hand smoke Call the 24-hour crisis hotline for domestic abuse at Endy Campbell MD, R3 Nov 12, 2017 16:25
== END 2017-11-12 16:51 | disposition home or self-care (01) | DRG 775 ==
LOC: HOBED 04:46 → H2EA 05:01 → H1EA 21:39
PROVIDERS: ADMIT Obstetrics & Gynecology; ATTEND Obstetrics & Gynecology
PROC: 10E0XZZ Delivery of Products of Conception, External Approach (ICD-10-PCS; principal; 2017-11-11)
PROC: 0HQ9XZZ Repair Perineum Skin, External Approach (ICD-10-PCS; 2017-11-11)
PROC: 10907ZC Drainage of Amniotic Fluid, Therapeutic from Products of Conception, Via Natural or Artificial Opening (ICD-10-PCS; 2017-11-11)
PROC: 00HU33Z Insertion of Infusion Device into Spinal Canal, Percutaneous Approach (ICD-10-PCS; 2017-11-11)
PROC: 3E0R3BZ Introduction of Anesthetic Agent into Spinal Canal, Percutaneous Approach (ICD-10-PCS; 2017-11-11)
DX: O99.824 Streptococcus B carrier state complicating childbirth (principal); O76 Abnormality in fetal heart rate and rhythm complicating labor and delivery; Z37.0 Single live birth; O34.219 Maternal care for unspecified type scar from previous cesarean delivery; Z3A.39 39 weeks gestation of pregnancy; O70.0 First degree perineal laceration during delivery
CPT/HCPCS: 59025; 80053; 80307; 81001; 82805; 85025; 85027; 87641; 99285; J2540; J7120